=== PATIENT | male | born 1975 | race Caucasian/White ===

== ENCOUNTER 2018-01-19 00:36 | Observation (INO) | payer BC, OTHER, SELFPAY ==
[2018-01-19] VITALS (9 sets, daily range): BP systolic 120–151; BP diastolic 78–102; PULSE 63–91; RESP 16–22; TEMP 36.3–37.7; O2SAT 96–97; BMI 37.3; BMI 37.8; BMI 37.9
--- NOTE | 2018-01-19 00:39 | ED.RN ---
called for ekg per rn request, no ole ekgs in [facility]
--- NOTE | 2018-01-19 00:42 | RAD_ITS ---
STUDY: X-RAY CHEST REASON FOR EXAM: Male, 42 years old. Chest pain TECHNIQUE: Single frontal view of the chest. COMPARISON: None. FINDINGS: The lungs are clear and expanded. There is no demonstrated pleural abnormality. Prominent cardiac silhouette. Normal mediastinum and ivet. Normal visualized pulmonary arteries. Normal visualized aortic arch and descending thoracic aorta. Normal visualized thoracic spine. Normal visualized ribs, clavicles, and shoulders. There is no demonstrated abnormality of the visualized soft tissue structures of the upper abdomen. RAD/Chest 1 View (Portable) IMPRESSION: No acute pulmonary findings. Electronically Signed: Roberto Moreno MD at 1:39 EDT Tel , Service support ,
--- NOTE | 2018-01-19 00:42 | EKG12_ITS ---
Test Reason : CP Blood Pressure : / mmHG Vent. Rate : 089 BPM Atrial Rate : 089 BPM P-R Int : 152 ms QRS Dur : 084 ms QT Int : 374 ms P-R-T Axes : 043 -11 037 degrees QTc Int : 455 ms Normal sinus rhythm Normal ECG Confirmed by MALIA MEDINA, ROBSON ([id number]), editorial cartoonist ANNA BRAGA ([id number]) on 01/20/2018 2:14:31 PM Referred By: ELENA Confirmed By:ROBSON FINLEY MD
--- NOTE | 2018-01-19 00:45 | ED.DCSUM_ITS ---
- ER Visit Summary Date of Service: 01/19/18 Chief Complaint: Chest pain History of Present Illness: The patient is a 42 M with a 2 week history of intermittent, waxing and waning chest pain. He states he initially felt heartburn and had diarrhea for a few days. Over the last 2 weeks he feels more as if he is having left chest pain. Tonight at work he broke out in a sweat and had worsening chest pressure. Patient denies any significant family history of heart problems. He denies hypertension, diabetes, or high cholesterol. Physical Examination: Blood pressure is 151/102, temperature 99.8, heart rate 91 , respiratory rate 22, pulse ox 96% on room air. Patient sitting upright in bed no acute distress. Head and neck examination is unremarkable. Heart is regular rate and rhythm. Lung sounds are clear. There is no reproducible chest wall tenderness. Abdomen is soft and nontender. Active bowel sounds are noted throughout. Lower extremity examination was no significant calf tenderness or edema. Test Results: EKG is sinus 89 with no sign of acute ischemia. CBC was normal white count with hemoglobin of 17.0. Platelet count is 134,000. Chemistry studies unremarkable. Troponin negative. Portable chest x-ray shows no acute findings. Emergency Department Course and Treatment: Patient had already taken aspirin today so that was not redosed. He is given a dose of morphine and Zofran. On repeat evaluation pain is improved. Patient has had progressive worsening symptoms over the past couple of weeks. Tonight he had unprovoked worsened chest pressure with diaphoresis. I recommended hospitalization for cycling of cardiac enzymes and probable stress test. Hospitalist is on page. Treatment Plan: [] Disposition: Admit Impression: Chest pain This note was generated with [employer]Beat dictation software. It may contain incorrect words, spelling, and punctuation that were not noted in review of the chart prior to signing ED Disposition - Plan for ED Patient: Chief Complaint: Chest Pain Referrals: NOT,DEFINED [NON-STAFF] -
[2018-01-19] MEDS: 0.9% Normal Saline 1,000 ML 150 ML IV (00:47)
[2018-01-19 00:55] LABS: Absolute Lymphocyte Count 3.26 X10^3/ul (0.83-4.51); Basophil# 0.02 X10^3/uL; Basophil% 0.3 % (0-1); Eosinophil# 0.22 X10^3/uL; Eosinophils% 3.1 % (0-5); Hematocrit 49.8 % (40-54); Lymphocyte # 3.26 X10^3/ul (4.0); Lymphocyte % 46.1 % (19-41); Mean Corp Hgb Conc 34.1 g/gl (32-36); Mean Corpuscular Hgb 31.1 pg (27.0-32.0); Mean Platelet Vol. 9.3 fl (6.2-12.0); Monocyte# 0.52 X10^3/uL; Monocyte% 7.4 % (0-10); Neutrophil # 3.04 X10^3/uL (2.7-7.7); POSITIVE COUNT NO; POSITIVE DIFFERENTIAL NO; POSITIVE MORPHOLOGY NO; Platelet Count 134 K/mm3 (150-450); RBC Distribution Width CV 12.6 % (11.6-14.6); RBC Distribution Width SD 41.8 fl (35.1-43.9); Red Blood Count 5.47 M/mm3 (4.6-6.2); White Blood Count 7.1 K/mm3 (4.4-11.0)
[2018-01-19 01:09] LABS: Anion Gap 6 (5-15); BUN 13 mg/dL (7-18); Calcium,Total 8.9 mg/dL (8.5-10.1); Chloride 111 mmol/L (98-107); EST Glomerular Filtration Rate 64 mL/min (>60); Est Glom Filt Rate - Afr Amer 77 mL/min (>60); Estimated Creatinine Clearance 79.59 ml/min; Glucose 104 mg/dL (74-106); Potassium 3.5 mmol/L (3.5-5.1); Sodium Level 144 mmol/L (136-145)
[2018-01-19] MEDS: Morphine 4 MG/ML Syringe IV (01:29)
[2018-01-19] MEDS: Ondansetron 4 MG/2 ML Vial IV (01:29)
--- NOTE | 2018-01-19 01:58 | HP.PCM_ITS ---
Problem List (1) Chest pain Status: Acute Qualifiers: Chest pain type: unspecified Qualified Code(s): R07.9 - Chest pain, unspecified History of Present Illness Date of Admission: 01/19/18 Chief Complaint: chest pain The patient is a 42 year old male who presents to the ER with chest pain. Onset began two weeks ago and he thought he was having acid reflux. This evening while at work the pain became stronger and he became diaphoretic. No family history of heart disease and the patient is not treated for hypertension or cholesterol nor is he a smoker. The patient will be admit for cardiac rule out. The pain was alleviated in the ER. Past Medical History Allergies Penicillins [PCN] Adverse Reaction (Verified 01/19/18 00:42) Other Home Medications: Ambulatory Orders Medication Instructions Recorded Fluoxetine [Prozac] 40 mg PO DAILY 01/19/18 Smoking Status: Never smoker - *Family History Maternal History Items: No pertinent history Review of Systems Constitutional: Denies: Chills, Fever, Weight Change HEENT: Denies: Head Aches, Sinus Congestion, Sinus Drainage Cardiovascular: Reports: Chest Pain. Denies: Palpitations Respiratory: Denies: Cough, Shortness of breath at rest, Sputum production Gastrointestinal: Denies: Abdominal Pain, Nausea, Vomiting Genitourinary: Denies: Dysuria Musculoskeletal: Denies: Joint Pain, Joint Tenderness Skin: Denies: Rash, Wounds Neurological: Denies: Numbness, Tingling, Focal weakness Psychiatric: Denies: Anxiety, Depression, Homicidal Ideations, Suicidal Ideations Hematologic/ Lymphatic: Denies: Easy Bruising, Easy Bleeding VTE Information - Inpt Only VTE Present on Admission: No VTE Mechan Device Prophylaxis: None VTE Pharm Prophylaxis ordered?: Yes Patient Problems: Active and Suspected Problems Chest pain (Acute) - Physical Exam General: Alert, Oriented x3, Cooperative HEENT: Atraumatic, Normocephalic Neck: Supple Lungs: Clear to auscultation, Normal air movement Cardiovascular: Regular rate, Regular Rhythm, Normal S1, Normal S2, No murmurs Abdomen: Bowel Sounds Present, Soft, Non Tender Extremities: No edema Skin: No rashes Musculoskeletal: No Tenderness to Palpation of Joints or Extremities Neurological: Neuro grossly intact Psych/Mental Status: Normal Affect, Appropriate Vital Signs Temp Pulse Resp BP Pulse Ox 99.8 F H 70 16 130/98 H 96 01/19/18 00:37 01/19/18 01:30 01/19/18 01:30 01/19/18 01:30 01/19/18 01:30 Oxygen Delivery Method Room Air Weight: 275 lb Body Mass Index (BMI) 37.3 Laboratory Tests Past 24 Hrs 01/19/18 01/19/18 00:45 00:45 WBC 7.1 RBC 5.47 Hgb 17.0 H Hct 49.8 MCV 91.0 MCH 31.1 MCHC 34.1 RDW 12.6 RDW Differential 41.8 Plt Count 134 L MPV 9.3 Immature Gran % (Auto) 0.100 Neut % (Auto) 43.0 L Lymph % (Auto) 46.1 H Kimble % (Auto) 7.4 Eos % (Auto) 3.1 Baso % (Auto) 0.3 Absolute Neuts (auto) 3.0 Absolute Lymphs (auto) 3.26 Total Counted Not Reportable Sodium 144 Potassium 3.5 Chloride 111 H Carbon Dioxide 27.0 Anion Gap 6 BUN 13 Creatinine 1.30 Estim Creat Clear Calc 79.59 Est GFR (MDRD) Af Amer 77 Est GFR (MDRD) Non-Af 64 BUN/Creatinine Ratio 10.0 Glucose 104 Calcium 8.9 Troponin I < 0.015 Assessment/Plan All Active Problems Chest pain (Acute) Plan - admit to observation - cycle cardiac markers - morphine, oxygen, nitro and aspirin per routine protocol - nuclear exercise stress test in am - LMWH for DVT prophylaxis - bmp, FLP in am Code Visit OBSV E&M: 76912 Initial observation care L2
--- NOTE | 2018-01-19 02:18 | EKG12_ITS ---
Test Reason : CP ADMIT Blood Pressure : / mmHG Vent. Rate : 055 BPM Atrial Rate : 055 BPM P-R Int : 140 ms QRS Dur : 090 ms QT Int : 450 ms P-R-T Axes : 033 001 006 degrees QTc Int : 430 ms Sinus bradycardia Otherwise normal ECG No previous ECGs available Confirmed by ZOEY MEDINA, MIKE ([id number]), marketing editor ANNA BRAGA ([id number]) on 01/21/2018 2:31:32 PM Referred By: DR FAIRCHILD Confirmed By:MIKE GREER MD
[2018-01-19 06:54] LABS: Partial Thromboplast Time 29.7 Seconds (24.1-36.2); Prothrombin Time (Protime)PT. 13.6 SECONDS (11.7-14.9)
[2018-01-19 07:06] LABS: ALB/GLOB Ratio 1.1 RATIO (0.9-2.4); AST(SGOT) 27 U/L (15-37); Alanine Aminotransfer ALT/SGPT 48 U/L (16-61); Albumin, Serum 3.3 g/dL (3.2-5.0); Alkaline Phosphatase 60 U/L (45-117); Anion Gap 7 (5-15); BUN 11 mg/dL (7-18); BUN/Creat Ratio 9.6 RATIO (10-20); Calcium,Total 8.4 mg/dL (8.5-10.1); Chloride 110 mmol/L (98-107); Cholesterol 166 mg/dL (200); Creatinine, Serum 1.14 mg/dL (0.70-1.30); EST Glomerular Filtration Rate 74 mL/min (>60); Est Glom Filt Rate - Afr Amer 90 mL/min (>60); Estimated Creatinine Clearance 90.76 ml/min; Globulin 3.1 g/dL (2.2-4.2); Glucose 81 mg/dL (74-106); High Density Lipoprotein 30 mg/dL; Potassium 4.1 mmol/L (3.5-5.1); Protein, Total 6.4 g/dL (6.4-8.2); Sodium Level 145 mmol/L (136-145); Triglycerides 152 mg/dL; Very Low Density Lipoprotein 30 mg/dL (5-40)
[2018-01-19] MEDS: Aspirin E.C. 325 MG Tablet PO (08:38)
--- NOTE | 2018-01-19 11:09 | STRESSREP_ITS ---
Stress Test Report Date: 01/19/2018 Procedure: Exercise tolerance test/imaging study Indications: Chest pain Consent: Per the patient Procedure: The patient exercised on a Franko protocol for 9 minutes completing Stage III achieving a peak heart rate of 160 bpm (90 % predicted maximal heart rate) with a peak blood pressure 172/94 mmHg and a peak MET capacity of 10 METs. The baseline ECG demonstrated normal sinus rhythm. The peak exercise ECG demonstrated no obvious ECG changes. There were no cardiac dysrhythmias pretest, during exercise, or recovery. The functional capacity was considered good. There was no complaint of chest discomfort during exercise or recovery. The examination was discontinued secondary to dyspnea. Impression: 1. Technically adequate (percent predicted maximal heart rate greater than 85% ) exercise tolerance test 2. Peak exercise ECG with no obvious ECG changes 3. There were no cardiac dysrhythmias pretest, during exercise, or recovery. 4. Nuclear images pending Myocardial perfusion imaging study: Technique: The patient was injected with 14.6 mCi of technetium 99m Cardiolite and subsequently rest SPECT Cardiolite nuclear imaging was obtained in the horizontal long, vertical long, and short axis views. The patient exercised on a Franko protocol for 9 minutes completing Stage III achieving a peak heart rate of 160 bpm (90 % predicted maximal heart rate) with a peak blood pressure 172/ 94 mmHg and a peak MET capacity of 10 METs. The patient was injected with 44.7 mCi of technetium 99m Cardiolite and subsequently stress SPECT Cardiolite nuclear imaging was obtained in the horizontal long, vertical long, and short axis views. A gated Cardiolite study at peak stress was obtained. Interpretation: Rest and stress SPECT Cardiolite nuclear imaging status post realignment, normalization, and attenuation correction, demonstrates the appearance of relative uniform tracer uptake and myocardial perfusion appearing within normal limits. There is end systolic thickening and brightening. The gated Cardiolite study demonstrates myocardial thickening and inward wall motion. The reported LVEF is 62 %. Impression: 1. Rest and stress SPECT Cardiolite nuclear imaging demonstrate relative uniform tracer uptake and myocardial perfusion appearing within normal limits. 2. The gated Cardiolite study reports an LVEF of 62 %. This note was generated with [employer] software. It may contain incorrect words, spelling, and punctuation that were not noted in checking the note before signing.
--- NOTE | 2018-01-19 11:50 | DCINST_ITS ---
- Discharge Diagnoses Current Active Problems: Current Active and Chronic Problems Chest pain (Acute) You will use the following diet at home:: No restrictions Your food should be the consistency of: Regular Your liquids should be the consistency of: Regular/Thin Discharge Activity: Return to Normal Activity Weight Bearing Status: Weight bearing as tolerated Allergies/Adverse Reactions: Allergies Penicillins [PCN] Adverse Reaction (Verified 01/19/18 00:42) Other Medications to take at Discharge Fluoxetine [Prozac] 40 mg PO DAILY 01/19/18 Primary Care Physician: NOT,DEFINED [NON-STAFF] - Please follow up with your Primary Care Physician in: follow up with primary care physician in 2-3 weeks Test Results: Test results from this visit will be discussed in further detail at your follow- up appointment, if applicable.
--- NOTE | 2018-01-22 17:30 | PCM.DC.SUM ---
Discharge Date and Diagnosis Date of Admission: 01/19/18 Date of Discharge: 01/19/18 - Primary Discharge Diagnosis #1 musculoskeletal chest pain Hospital Course and Treatment Operations: None Procedures: Nuclear stress test Summary of Care Provided: The patient is a 42 year old M who presented to the emergency room at [facility] with complaints of chest pain, workup in the emergency room included an EKG which showed no acute ischemic changes, chest x-ray which was unremarkable, and labs which were unremarkable. Patient was placed in observation status on PCU, serial enzymes were cycled and these remained negative. Patient underwent a nuclear stress test on 01/19/18 which showed no evidence of reversible ischemia. Patient was seen and examined that day and discharged home in stable condition Discharge Activity: Return to Normal Activity Weight Bearing Status: Weight bearing as tolerated Home Medications: Medications to take at Discharge Fluoxetine [Prozac] 40 mg PO DAILY 01/19/18 Primary Care Physician: NOT,DEFINED [NON-STAFF] - Please follow up with your Primary Care Physician in: follow up with primary care physician in 2-3 weeks Disposition: Home Minutes spent on discharge:: 25 Patient Condition:: Stable Medical Necessity - Tobacco Use Smoking Status: Never smoker Meaningful Use Info Meaningful Use Diagnoses (Choose all that apply): None applicable Code Visit OBSV E&M: 36351 Observ/hosp same date L3
--- NOTE | 2018-01-22 17:35 | DS.PCM_ITS ---
Discharge Date and Diagnosis Date of Admission: 01/19/18 Date of Discharge: 01/19/18 - Primary Discharge Diagnosis #1 musculoskeletal chest pain Hospital Course and Treatment Operations: None Procedures: Nuclear stress test Summary of Care Provided: The patient is a 42 year old M who presented to the emergency room at [facility] with complaints of chest pain, workup in the emergency room included an EKG which showed no acute ischemic changes, chest x-ray which was unremarkable, and labs which were unremarkable. Patient was placed in observation status on PCU, serial enzymes were cycled and these remained negative. Patient underwent a nuclear stress test on 01/19/18 which showed no evidence of reversible ischemia. Patient was seen and examined that day and discharged home in stable condition Discharge Activity: Return to Normal Activity Weight Bearing Status: Weight bearing as tolerated Home Medications: Medications to take at Discharge Fluoxetine [Prozac] 40 mg PO DAILY 01/19/18 Primary Care Physician: NOT,DEFINED [NON-STAFF] - Please follow up with your Primary Care Physician in: follow up with primary care physician in 2-3 weeks Disposition: Home Minutes spent on discharge:: 25 Patient Condition:: Stable Medical Necessity - Tobacco Use Smoking Status: Never smoker Meaningful Use Info Meaningful Use Diagnoses (Choose all that apply): None applicable Code Visit OBSV E&M: 58711 Observ/hosp same date L3
== END 2018-01-19 11:49 | disposition home or self-care (01) ==
LOC: ED 01:32 → PCU 02:08
PROVIDERS: Admitting Provider Family Medicine; Emergency Provider Emergency Medicine; Visit Provider Internal Medicine
DX: R07.89 Other chest pain (principal); R19.7 Diarrhea, unspecified; Z79.899 Other long term (current) drug therapy; R00.1 Bradycardia, unspecified; F32.9 Major depressive disorder, single episode, unspecified
CPT/HCPCS: 36415; 71045; 78452; 80048; 80053; 80061; 84484; 85025; 85610; 85730; 93005; 93017; 96361; 96374; 96375; 99218; 99283; A9500; J7030; A4216; G0378; J2405